=== PATIENT | male | born 1960 | race Caucasian/White ===

== ENCOUNTER 2024-03-09 07:39 | Emergency (ER) | payer OTHER ==
--- NOTE | 2024-03-09 08:39 | RAD REPORT ---
EXAM DESCRIPTION: RAD - Chest Single View - 03/09/2024 8:29 am CLINICAL HISTORY: ABDOMINAL DISTENTION COMPARISON: No comparisons FINDINGS: Lines: None. Lungs: No evidence of edema or pneumonia. Pleural: No significant pleural effusions or pneumothorax. Cardiac: The heart size is within normal limits. Mediastinum: Within normal limits. Bones: No acute fractures. Other: None IMPRESSION: No acute cardiopulmonary disease.
[2024-03-09] MEDS ORDERED: NA CHLORIDE 0.9% 1,000 ML ONE (09:08)
[2024-03-09 09:20] LABS: Absolute Basophils 0.1 K/uL (0-0.5); Absolute Eosinophils 0.5 K/uL (0-0.5); Absolute Lymphocytes (CBC) 1.7 K/uL (0.7-4.9); Absolute Monocytes 1.6 K/uL (0.1-1.3); Absolute Neutrophil 15.1 K/uL (1.8-8.0); Basophils % 0.3 % (0-1.3); Eosinophils % 2.5 % (0-4.4); Hematocrit 50.1 % (39.6-49.0); Hemoglobin 16.5 g/dL (13.6-17.9); Lymphocytes % 8.9 % (15.3-44.8); MCH 28.6 pg (27.0-35.0); MCV 86.6 fL (80-100); MPV 7.8 fL (7.6-11.3); Monocytes % 8.5 % (3.3-12.3); Neutrophils % 79.8 % (41.7-73.7); Nucleated Red Blood Cells % 0.1 % (0-0); PT Prothrombin Time 11.4 SECONDS (9.4-12.5); Platelets 274 thou/uL (152-406); Protime INR 1.02; RBC Red Blood Cell Count 5.79 M/uL (4.33-5.43); Red Cell Distribution Width 15.3 % (12.1-15.2)
[2024-03-09 09:22] LABS: Specific Gravity 1.024 (1.005-1.030); Sqamous Epithelial <5 /HPF (None Seen); Urine Bacteria 20-50 /HPF (<20); Urine Bilirubin NEGATIVE (Negative); Urine Blood 2+ (Negative); Urine Clarity Extremely Turbid (Clear); Urine Color Yellow (Yellow); Urine Culture Reflex Order REFLEXED; Urine Glucose NEGATIVE (Negative); Urine Ketones NEGATIVE (Negative); Urine Microscopic Reflex YN ORDER UMIC; Urine Mucus 2+ /HPF (None Seen); Urine Nitrite 2+ (Negative); Urine Protein 1+ (Negative); Urine RBC >50 /HPF (None Seen); Urine Urobilinogen Normal (Normal); Urine WBC >50 /HPF (<5)
[2024-03-09 09:39] LABS: Albumin 4.1 g/dL (3.4-5.0); Albumin/Globulin Ratio 1.1 (1.1-1.8); Bilirubin Direct 0.2 mg/dL (0-0.2); Bilirubin Indirect, Calculated 0.9 mg/dL (0.2-0.8); Bilirubin Total 1.1 mg/dL (0.2-1.0); Globulin 3.8 g/dL (2.3-3.5); Protein, Total 7.9 g/dL (6.4-8.2); Troponin High Sensitivity 15.7 pg/mL (<58.9)
--- NOTE | 2024-03-09 10:19 | RAD REPORT ---
EXAM DESCRIPTION: CTAbdomen Pelvis W Contrast - 03/09/2024 10:06 am CLINICAL HISTORY: ABD PAIN COMPARISON: No comparisons TECHNIQUE: CT of the abdomen and pelvis was performed with IV contrast. All CT scans are performed using dose optimization technique as appropriate and may include automated exposure control or mA/KV adjustment according to patient size. FINDINGS: Lower chest: No acute abnormality. Circumferential thickened distal esophagus. Liver: No acute abnormality or suspicious lesions. Biliary: No biliary ductal dilatation. Stomach: No significant focal abnormality. Duodenum: No significant focal abnormality. Pancreas: No significant abnormality. Spleen: No significant abnormality. Adrenal: No suspicious lesions. Kidney/ureter: No hydronephrosis. No renal calculi. Wedge-shaped area of hypoenhancement in the inter polar aspect of the right kidney Retroperitoneum: No retroperitoneal adenopathy. Vascular: No aneurysm. Atherosclerosis . Bowel: Normal appendix. No bowel obstruction.. Diverticulosis without diverticulitis. Peritoneum: No ascites or free air. Bladder: Grossly unremarkable. Reproductive: Bilateral hydroceles are partially imaged. Bones: No acute fracture. Multilevel degenerative changes are present in the spine. Other: n/a IMPRESSION: Wedge-shaped area of hypoenhancement in the right kidney could represent changes of armand y pyelonephritis, less likely renal infarct. Correlate with urinalysis. No urinary tract calculi . No hydronephrosis. Normal appendix.
[2024-03-09] MEDS ORDERED: Meropenem 1000 MG/VIAL IV ONE (10:23)
[2024-03-09] MEDS ORDERED: ONDANSETRON 4 MG/2 ML VIAL ONE (10:23)
[2024-03-09] MEDS ORDERED: MORPHINE 4 MG/ML SYR ONE (10:24)
[2024-03-09] MEDS ORDERED: NA CHLORIDE 0.9% 100 ML ONE (10:24)
--- NOTE | 2024-03-09 11:24 | ER ---
Nurse's Notes [facility] Name: Mahendra Goodwin Age: 63 yrs Sex: Male : 1960 Arrival Date: 03/09/2024 Time: 07:39 Bed 16 Private MD: Diagnosis: Elevated white blood cell count;Pyelonephritis acute;UTI/ Urinary tract infection, site not specified Presentation: 03/09 08:22 Chief complaint: Intermittent RLQ pain x 1 month, subjective fever last night. hb Coronavirus screen: At this time, the client does not indicate any symptoms associated with coronavirus-19. Ebola Screen: No symptoms or risks identified at this time. Initial Sepsis Screen: Does the patient meet any 2 criteria? No. Patient's initial sepsis screen is negative. Does the patient have a suspected source of infection? No. Patient's initial sepsis screen is negative. Risk Assessment: Do you want to hurt yourself or someone else? Patient reports no desire to harm self or others. Onset of symptoms was January 2024. 08:22 Method Of Arrival: Ambulatory hb 08:22 Acuity: VIDA 3 hb Historical: - Allergies: 08:23 No Known Allergies; hb - Home Meds: 08:23 None [Active]; hb - PMHx: 08:23 TBI; hb - PSHx: 08:23 Danica- Right; hb - Immunization history:: Adult Immunizations up to date. - Infectious Disease History:: Denies. - Social history:: Smoking status: Patient reports the use of cigarette tobacco products, cigars. Screenin:15 [facility] ED Fall Risk Assessment (Adult) History of falling in the last 3 months, db including since admission No falls in past 3 months (0 pts) Confusion or Disorientation No (0 pts) Intoxicated or Sedated No (0 pts) Impaired Gait No (0 pts) Mobility Assist Device Used No (0 pt) Altered Elimination No (0 pt) Score/Fall Risk Level 0 - 2 = Low Risk Oriented to surroundings, Maintained a safe environment. Abuse screen: Denies threats or abuse. Denies injuries from another. Nutritional screening: No deficits noted. Tuberculosis screening: No symptoms or risk factors identified. Assessment: 09:16 Reassessment: Patient appears in no apparent distress at this time. Patient and/or db family updated on plan of care and expected duration. Pain level reassessed. Patient is alert, oriented x 3, equal unlabored respirations, skin warm/dry/pink. LEFT LOWER ABD PAIN. General: Appears in no apparent distress. comfortable, Behavior is calm, cooperative. Pain: Complains of pain in abdomen. Neuro: Level of Consciousness is awake, alert, obeys commands, Oriented to person, place, time, situation. Respiratory: Airway is patent Respiratory effort is even, unlabored, Respiratory pattern is regular, symmetrical. GI: Abdomen is flat, Bowel sounds Abd is soft Abdomen is tender to palpation in left lower quadrant. 10:40 Reassessment: Patient appears in no apparent distress at this time. Patient and/or kj2 family updated on plan of care and expected duration. Pain level reassessed. Patient is alert, oriented x 3, equal unlabored respirations, skin warm/dry/pink. Vital Signs: 08:22 BP 134 / 83; Pulse 82; Resp 16; Temp 98.3(O); Pulse Ox 100% on R/A; Weight 89.36 kg; hb Height 5 ft. 8 in. ; Pain 6/10; 12:26 BP 165 / 88; Pulse 75; Resp 20; Temp 98; Pulse Ox 100% on R/A; kj2 08:22 Body Mass Index 29.95 (89.36 kg, 172.72 cm) hb 08:22 Pain Scale: Adult hb ED Course: 07:46 Patient arrived in ED. mg5 07:53 Jarad Santiago MD is Attending Physician. annelise 08:23 Triage completed. hb 08:24 Arm band placed on. hb 08:31 XRAY Chest (1 view) In Process Unspecified. EDMS 09:10 Initial lab(s) drawn, by hi, sent to lab. Inserted saline lock: 20 gauge in left db antecubital area, using aseptic technique. Blood collected. Flushed with 10 mL NS. 09:18 Patient has correct armband on for positive identification. Bed in low position. Call db light in reach. Side rails up X 1. Pulse ox on. NIBP on. Warm blanket given. 09:58 Gloria Antony, RN is Primary Nurse. db 10:08 CT Abd/Pelvis - IV Contrast Only In Process Unspecified. EDMS 10:14 Patient moved back from CT. db 11:22 Kaushal Novoa MD is Hospitalizing Provider. annelise 11:53 US Rp Exam Limited In Process Unspecified. EDMS 11:55 US Scrotum Testicles In Process Unspecified. EDMS 12:08 Wili Sanders MD is Referral Physician. [facility] 12:30 Provided Education on: CALL LIGHT, FALL PRECAUTIONS. kj2 12:31 IV discontinued, intact, bleeding controlled, No redness/swelling at site. Pressure kj2 dressing applied. 12:31 No provider procedures requiring assistance completed. kj2 Administered Medications: 09:12 Drug: NS 0.9% IV 1000 ml IV at 1 bolus Per protocol; 1000 mL bolus Route: IV; Rate: 1 db bolus; Site: left antecubital; 10:15 Follow up: IV Status: Completed infusion; IV Intake: 1000ml kj2 10:42 Follow up: IV Status: Completed infusion; IV Intake: 1000ml kj2 10:35 Drug: morphine IVP or IV 4 mg IVP once over 4 mins Route: IVP; Infused Over: 4 mins; kj2 Site: left wrist; 11:15 Follow up: Response: No adverse reaction; Pain is decreased kj2 10:40 Drug: Ondansetron IVP 4 mg IVP once; over 2 minutes Route: IVP; Site: left wrist; kj2 12:28 Follow up: Response: No adverse reaction; Nausea is decreased kj2 10:41 Drug: Meropenem IV 1 grams IV at per protocol once; (mix in NS 100 mL) Route: IV; Rate: kj2 per protocol; Site: left wrist; 11:42 Follow up: IV Status: Completed infusion; IV Intake: 100ml kj2 Medication: 12:29 VIS not applicable for this client. kj2 Intake: 10:15 IV: 1000ml; Total: 1000ml. kj2 10:42 IV: 1000ml; Total: 2000ml. kj2 11:42 IV: 100ml; Total: 2100ml. kj2 Outcome: 11:23 Decision to Hospitalize by Provider. [facility] 12:08 Discharge ordered by . annelise 12:30 Discharged to home ambulatory, with family, kj2 12:30 Condition: stable 12:30 Discharge instructions given to patient, family, Instructed on discharge instructions, follow up and referral plans. Demonstrated understanding of instructions, follow-up care, medications, Prescriptions given X 2, 12:31 Patient left the ED. kj2 Signatures: Dispatcher [employer] Jarad Gan MD MD cha Baxter, Heather, RN RN hb Gloria Antony, RN RN Nita Diaz 5 Tammy Paige RN RN kj2
--- NOTE | 2024-03-09 11:24 | EDPHYS ---
Physician Documentation [facility] Name: Mahendra Goodwin Age: 63 yrs Sex: Male : 1960 Arrival Date: 03/09/2024 Time: 07:39 Bed 16 Private MD: ED Physician Jarad Santiago HPI: 03/09 11:15 This 63 yrs old Male presents to ER via Ambulatory with complaints of annelise Abdominal Pain, Vomiting. 11:15 The patient presents to the emergency department with nausea, vomiting, abdominal pain, annelise of the right lower quadrant. Onset: The symptoms/episode began/occurred 4 week(s) ago. Possible causes: unknown. The symptoms are aggravated by nothing. The symptoms are alleviated by nothing. Associated signs and symptoms: Pertinent positives: abdominal pain, nausea, vomiting. Severity of symptoms: At their worst the symptoms were moderate in the emergency department the symptoms are unchanged. The patient has not experienced similar symptoms in the past. Historical: - Allergies: 08:23 No Known Allergies; hb - Home Meds: 08:23 None [Active]; hb - PMHx: 08:23 TBI; hb - PSHx: 08:23 Dainca- Right; hb - Immunization history:: Adult Immunizations up to date. - Infectious Disease History:: Denies. - Social history:: Smoking status: Patient reports the use of cigarette tobacco products, cigars. ROS: 11:16 Constitutional: Negative for fever, chills, and weight loss, Eyes: Negative for injury, annelise pain, redness, and discharge, ENT: Negative for injury, pain, and discharge, Neck: Negative for injury, pain, and swelling, Cardiovascular: Negative for chest pain, palpitations, and edema, Respiratory: Negative for shortness of breath, cough, wheezing, and pleuritic chest pain, Back: Negative for injury and pain, MS/Extremity: Negative for injury and deformity, Skin: Negative for injury, rash, and discoloration, Neuro: Negative for headache, weakness, numbness, tingling, and seizure, Psych: Negative for depression, anxiety, suicide ideation, homicidal ideation, and hallucinations, Allergy/Immunology: Negative for hives, rash, and allergies, Endocrine: Negative for neck swelling, polydipsia, polyuria, polyphagia, and marked weight changes, Hematologic/Lymphatic: Negative for swollen nodes, abnormal bleeding, and unusual bruising, 11:16 Abdomen/GI: Positive for abdominal pain, nausea and vomiting, of the right lower quadrant, Exam: 11:16 Constitutional: This is a well developed, well nourished patient who is awake, alert, annelise and in no acute distress. Head/Face: Normocephalic, atraumatic. Eyes: Pupils equal round and reactive to light, extra-ocular motions intact. Lids and lashes normal. Conjunctiva and sclera are non-icteric and not injected. Cornea within normal limits. Periorbital areas with no swelling, redness, or edema. ENT: Nares patent. No nasal discharge, no septal abnormalities noted. Tympanic membranes are normal and external auditory canals are clear. Oropharynx with no redness, swelling, or masses, exudates, or evidence of obstruction, uvula midline. Mucous membranes moist. Neck: Trachea midline, no thyromegaly or masses palpated, and no cervical lymphadenopathy. Supple, full range of motion without nuchal rigidity, or vertebral point tenderness. No Meningismus. Chest/axilla: Normal chest wall appearance and motion. Nontender with no deformity. No lesions are appreciated. Cardiovascular: Regular rate and rhythm with a normal S1 and S2. No gallops, murmurs, or rubs. Normal PMI, no JVD. No pulse deficits. Respiratory: Lungs have equal breath sounds bilaterally, clear to auscultation and percussion. No rales, rhonchi or wheezes noted. No increased work of breathing, no retractions or nasal flaring. Back: No spinal tenderness. No costovertebral tenderness. Full range of motion. Male : Normal genitalia with no discharge or lesions. Skin: Warm, dry with normal turgor. Normal color with no rashes, no lesions, and no evidence of cellulitis. MS/ Extremity: Pulses equal, no cyanosis. Neurovascular intact. Full, normal range of motion. Neuro: Awake and alert, GCS 15, oriented to person, place, time, and situation. Cranial nerves II-XII grossly intact. Motor strength 5/5 in all extremities. Sensory grossly intact. Cerebellar exam normal. Normal gait. Psych: Awake, alert, with orientation to person, place and time. Behavior, mood, and affect are within normal limits. 11:16 Abdomen/GI: Inspection: abdomen appears normal, Bowel sounds: normal, Palpation: moderate abdominal tenderness, in the right lower quadrant, Liver: no appreciated palpable abnormalities, Hernia: not appreciated, 11:25 ECG was reviewed by the Attending Physician. [facility] Vital Signs: 08:22 BP 134 / 83; Pulse 82; Resp 16; Temp 98.3(O); Pulse Ox 100% on R/A; Weight 89.36 kg; hb Height 5 ft. 8 in. ; Pain 6/10; 12:26 BP 165 / 88; Pulse 75; Resp 20; Temp 98; Pulse Ox 100% on R/A; kj2 08:22 Body Mass Index 29.95 (89.36 kg, 172.72 cm) hb 08:22 Pain Scale: Adult hb MDM: 07:53 Patient medically screened. [facility] 11:18 Differential diagnosis: Nonspecific abd pain, appendicitis, viral gastroenteritis, annelise gastroenteritis, appendicitis, Cholelithiasis, diverticulitis, non-specific abd pain, pancreatitis, Peptic Ulcer Disease, Peritonitis, Prostatitis, Ureterolithiasis, urinary tract infection. Data reviewed: vital signs, nurses notes, lab test result(s), EKG, radiologic studies, CT scan, plain films. Consideration of Admission/Observation Escalation of care including admission/observation considered. I considered the following discharge prescriptions or medication management in the emergency department Medications were administered in the Emergency Department. See MAR. Independent interpretation of the following test(s) in the Emergency Department EKG: See my EKG interpretation above. Test considered but Not performed: MRI: no mri renal. Care significantly affected by the following chronic conditions: tbi. 03/09 07:54 Order name: Basic Metabolic Panel; Complete Time: 09:45 [facility] 03/09 07:54 Order name: CBC with Diff; Complete Time: 09:45 [facility] 03/09 07:54 Order name: LFT's; Complete Time: 09:45 [facility] 03/09 07:54 Order name: Magnesium; Complete Time: 09:45 [facility] 03/09 07:54 Order name: NT PRO-BNP; Complete Time: 09:45 [facility] 03/09 07:54 Order name: PT-INR; Complete Time: 09:45 [facility] 03/09 07:54 Order name: Troponin HS; Complete Time: 09:45 [facility] 03/09 07:54 Order name: Lipase; Complete Time: 09:45 [facility] 03/09 07:54 Order name: Urinalysis w/ reflexes; Complete Time: 09:45 [facility] 03/09 09:30 Order name: Urine Culture [facility] 03/09 07:54 Order name: XRAY Chest (1 view); Complete Time: 09:45 [facility] 03/09 07:54 Order name: CT Abd/Pelvis - IV Contrast Only; Complete Time: 11:03 [facility] 03/09 11:25 Order name: US Rp Exam Limited [facility] 03/09 11:25 Order name: US Scrotum Testicles [facility] 03/09 07:54 Order name: Cardiac monitoring; Complete Time: 10:43 [facility] 03/09 07:54 Order name: EKG - Nurse/Tech; Complete Time: 10:43 [facility] 03/09 07:54 Order name: IV Saline Lock; Complete Time: 09:16 [facility] 03/09 07:54 Order name: Labs collected and sent; Complete Time: 09:16 [facility] 03/09 07:54 Order name: O2 Per Protocol; Complete Time: 09:16 [facility] 03/09 07:54 Order name: O2 Sat Monitoring; Complete Time: 09:16 [facility] EC:25 Rate is 73 beats/min. Rhythm is regular. QRS Taft is Normal. [place] interval is normal. QRS annelise interval is normal. QT interval is normal. No Q waves. T waves are Normal. No ST changes noted. Clinical impression: NSR w/ Non-specific ST/T Changes and No evidence of ischemia. Interpreted by me. Reviewed by me. Administered Medications: 09:12 Drug: NS 0.9% IV 1000 ml IV at 1 bolus Per protocol; 1000 mL bolus Route: IV; Rate: 1 db bolus; Site: left antecubital; 10:15 Follow up: IV Status: Completed infusion; IV Intake: 1000ml kj2 10:42 Follow up: IV Status: Completed infusion; IV Intake: 1000ml kj2 10:35 Drug: morphine IVP or IV 4 mg IVP once over 4 mins Route: IVP; Infused Over: 4 mins; kj2 Site: left wrist; 11:15 Follow up: Response: No adverse reaction; Pain is decreased kj2 10:40 Drug: Ondansetron IVP 4 mg IVP once; over 2 minutes Route: IVP; Site: left wrist; kj2 12:28 Follow up: Response: No adverse reaction; Nausea is decreased kj2 10:41 Drug: Meropenem IV 1 grams IV at per protocol once; (mix in NS 100 mL) Route: IV; Rate: kj2 per protocol; Site: left wrist; 11:42 Follow up: IV Status: Completed infusion; IV Intake: 100ml kj2 Disposition Summary: 03/09/24 12:08 Discharge Ordered Notes: Location: Home(03/09/24 12:08) annelise Problem: new(03/09/24 12:08) annelise Symptoms: have worsened(03/09/24 12:08) annelise Condition: Serious(03/09/24 12:08) annelise Diagnosis - Elevated white blood cell count(03/09/24 12:08) annelise - Pyelonephritis acute(03/09/24 12:08) annelise - UTI/ Urinary tract infection, site not specified(03/09/24 12:08) annelise Followup: annelise - With: Private Physician - When: Upon discharge from the Emergency Department - Reason: Recheck today's complaints, Continuance of care, Re-evaluation by your physician Followup: annelise - With: Wili Sanders MD - When: Upon discharge from the Emergency Department - Reason: Recheck today's complaints, Continuance of care, Re-evaluation by your physician Discharge Instructions: - Discharge Summary Sheet annelise - Dysuria annelise - Pyelonephritis, Adult annelise - Pyelonephritis, Adult, [id number] annelise - Urinary Tract Infection, Adult [facility] Forms: - Medication Reconciliation Form annelise - Antibiotic Education annelise - Prescription Opioid Use annelise - Patient Portal Instructions annelise - Leadership Thank You Letter [facility] Prescriptions: - cefdinir 300 mg Oral capsule - take 1 capsule ORAL route every 12 hours; 14 capsule; Refills: 0, Product annelise Selection Permitted - levofloxacin 500 mg Oral tablet - take 1 tablet ORAL route once daily for 10 days; 10 tablet; Refills: 0, Product annelise Selection Permitted Signatures: Dispatcher [employer] Jarad Gan MD MD cha Baxter, Heather, RN RN Gloria Betts RN RN Tammy Reed RN RN kj2 Corrections: (The following items were deleted from the chart) 07:55 07:54 BASIC METABOLIC PANEL+C.LAB.BRZ ordered. EDMS EDMS 07:55 07:54 CBC+H.LAB.BRZ ordered. EDMS EDMS 07:55 07:54 HEPATIC FUNCTION+C.LAB.BRZ ordered. EDMS EDMS 07:55 07:54 MAGNESIUM+C.LAB.BRZ ordered. EDMS EDMS 07:55 07:54 PROBNP+C.LAB.BRZ ordered. EDMS EDMS 07:55 07:54 PROTIME (+INR)+COAG.LAB.BRZ ordered. EDMS EDMS 07:55 07:54 Troponin High Sensitivity+C.LAB.BRZ ordered. EDMS EDMS 07:55 07:54 LIPASE+C.LAB.BRZ ordered. EDMS EDMS 07:55 07:54 Urinalysis+U.LAB.BRZ ordered. EDMS EDMS 07:55 07:55 Chest Single View+RAD.RAD.BRZ ordered. EDMS EDMS 07:55 07:55 Abdomen Pelvis W Con+CT.RAD.BRZ ordered. EDMS EDMS 11:25 11:25 Scrotum Testicles+US.RAD.BRZ ordered. EDMS EDMS 12:07 11:23 Inpatient Admission annelise annelise 12:07 11:23 Kaushal Novoa annelise annelise 12:07 11:23 Telemetry/MedSurg (Inpatient) annelise annelise 12:07 11:23 Fair annelise annelise 12:07 11:23 new annelise annelise 12:07 11:23 have improved annelise annelise 12:07 11:23 Standard annelise annelise 12:07 11:23 annelise annelise 12:07 11:23 Pyelonephritis acute annelise annelise 12:07 11:23 Elevated white blood cell count annelise annelise 12:07 11:23 UTI/ Urinary tract infection, site not specified annelise annelise
--- NOTE | 2024-03-09 12:05 | RAD REPORT ---
EXAM DESCRIPTION: US - Scrotum Testicles - 03/09/2024 11:53 am CLINICAL HISTORY: SWELLING COMPARISON: Abdomen Pelvis W Contrast dated 03/09/2024 FINDINGS: The right testicle 4.1 x 2.6 x 2.6 cm with volume of 14.2 cc. No intratesticular masses or evidence of testicular torsion. The left testicle 4.5 x 2.5 x 2.5 cm with volume of 15.1 cc. No intratesticular masses or evidence of testicular torsion. Subcentimeter epididymal cysts are present on the right side. The left epididymis is not well-visuali zed . Moderate bilateral hydroceles containing some low-level debris. . IMPRESSION: Moderate bilateral hydroceles with low level internal echoes possibly indicating some de bris. Bilateral testicular blood flow.
--- NOTE | 2024-03-09 12:12 | RAD REPORT ---
EXAM DESCRIPTION: US - Renal Ultrasound-Limited - 03/09/2024 11:51 am CLINICAL HISTORY: PAIN COMPARISON: Abdomen Pelvis W Contrast dated 03/09/2024 FINDINGS: The right kidney measures 10.9 cm. No hydronephrosis, focal mass or perinephric fluid. No correlate to the finding on the CT from earlier in the day. The left kidney was not imaged. IMPRESSION: Limited ultrasound to evaluate the right kidney. No sonographic correlate to the same-da y CT finding. No hydronephrosis .
[2024-03-09 12:54] VITALS: O2SAT 100
[2024-03-09 12:55] VITALS: BP 165/88; TEMP 98
--- NOTE | 2024-03-11 17:52 | EKG ---
Test Date: 2024-03-09 Test Time: 11:21:32 Supplier Relationship Director: MOHSEN MEASUREMENT RESULTS: Intervals: Rate: 73 VT: 148 QRSD: 124 QT: 414 QTc: 456 [place]: P: 52 VT: 148 QRS: 52 T: 27 INTERPRETIVE STATEMENTS: Normal sinus rhythm Right bundle branch block Abnormal ECG No previous ECG available for comparison Electronically Signed On 03-11-24 17:47:48 CDT by Claude Mary
== END 2024-03-09 12:31 | disposition home or self-care (01) ==
LOC: ER 07:39
DX: N10 Acute pyelonephritis (principal); N39.0 Urinary tract infection, site not specified; D72.829 Elevated white blood cell count, unspecified; Z72.0 Tobacco use
CPT/HCPCS: 96365; 96361; 87088; 85025; 81001; 87086; 80048; 36415; 83735; 85610; 80076; 84484; 83690; 83880; 74177; 71045; 76870; 76775; 96375; 99285; Q9967; J2185; J2405; J7030; 93005

== ENCOUNTER 2024-03-10 08:56 | Observation (INO) | payer OTHER ==
[2024-03-10] MEDS ORDERED: KETOROLAC 30 MG/ML INJ ONE (09:41)
[2024-03-10 09:45] LABS: Absolute Basophils 0.1 K/uL (0-0.5); Absolute Eosinophils 0.1 K/uL (0-0.5); Absolute Lymphocytes (CBC) 2.2 K/uL (0.7-4.9); Absolute Monocytes 1.8 K/uL (0.1-1.3); Absolute Neutrophil 13.1 K/uL (1.8-8.0); Basophils % 0.3 % (0-1.3); Eosinophils % 0.8 % (0-4.4); Hematocrit 45.7 % (39.6-49.0); Hemoglobin 15.3 g/dL (13.6-17.9); Lymphocytes % 12.5 % (15.3-44.8); MCHC 33.5 g/dL (32.0-36.0); MCV 86.6 fL (80-100); MPV 7.6 fL (7.6-11.3); Monocytes % 10.6 % (3.3-12.3); Neutrophils % 75.8 % (41.7-73.7); Nucleated Red Blood Cells % 0.1 % (0-0); Platelets 230 thou/uL (152-406); RBC Red Blood Cell Count 5.28 M/uL (4.33-5.43); Red Cell Distribution Width 15.8 % (12.1-15.2)
[2024-03-10 10:01] LABS: Albumin 3.4 g/dL (3.4-5.0); Albumin/Globulin Ratio 0.9 (1.1-1.8); Anion Gap 6.9 mEq/L (5.0-15.0); Bilirubin Total 1.1 mg/dL (0.2-1.0); Globulin 3.6 g/dL (2.3-3.5); Potassium 3.9 mEq/L (3.5-5.1)
[2024-03-10] MEDS ORDERED: NA CHLORIDE 0.9% 1,000 ML ONE (10:19)
[2024-03-10 10:39] LABS: Specific Gravity > 1.030 (1.005-1.030); Sqamous Epithelial <5 /HPF (None Seen); Urine Bacteria <20 /HPF (<20); Urine Bilirubin NEGATIVE (Negative); Urine Blood 3+ (Negative); Urine Clarity Extremely Turbid (Clear); Urine Color Yellow (Yellow); Urine Culture Reflex Order REFLEXED; Urine Glucose NEGATIVE (Negative); Urine Ketones NEGATIVE (Negative); Urine Micro Reflex YN NO BILL MICROSCOPIC; Urine Mucus 4+ /HPF (None Seen); Urine Nitrite NEGATIVE (Negative); Urine Protein 1+ (Negative); Urine RBC >50 /HPF (None Seen); Urine Urobilinogen 1+ (Normal); Urine WBC >50 /HPF (<5); Urine pH 5.5 (5.0-7.0)
--- NOTE | 2024-03-10 10:52 | EDPHYS ---
Physician Documentation [facility] Name: Mahendra Goodwin Age: 63 yrs Sex: Male : 1960 Arrival Date: 03/10/2024 Time: 08:56 Bed 14 Private MD: ED Physician Ti Peters HPI: 03/10 09:14 This 63 yrs old Male presents to ER via Ambulatory with complaints of Flank Pain, sb4 Urinary Problem. 09:14 RLQ pain x 1 month. was seen here yesterday, diagnosed with pyelo, admission sb4 recommended, patient refused because he had things to do. is back today now okay with being admitted. states he did fill the antibiotics and has taken them, pain is unchanged. denies any fever, chills, nausea, vomiting. Historical: - Allergies: 09:05 No Known Allergies; ll1 - PMHx: 09:05 TBI; ll1 - PSHx: 09:05 Danica- Right; ll1 - Immunization history:: Adult Immunizations up to date. - Infectious Disease History:: Denies. - Social history:: Smoking status: Patient reports the use of cigarette tobacco products, cigars. ROS: 09:14 Constitutional: Negative for fever, chills, and weight loss, sb4 09:14 Abdomen/GI: Positive for abdominal pain, 09:14 All other systems are negative, Exam: 09:14 Constitutional: This is a well developed, well nourished patient who is awake, alert, sb4 and in no acute distress. Head/Face: Normocephalic, atraumatic. Eyes: Extra-ocular motions intact. Periorbital areas with no swelling, redness, or edema. ENT: Mucous membranes moist. Cardiovascular: Regular rate and rhythm with a normal S1 and S2. Respiratory: Lungs have equal breath sounds bilaterally, clear to auscultation and percussion. No rales, rhonchi or wheezes noted. No increased work of breathing, no retractions or nasal flaring. Abdomen/GI: Soft, non-tender, no distension. Skin: Warm, dry with normal turgor. Normal color with no rashes, no lesions, and no evidence of cellulitis. MS/ Extremity: Pulses equal, no cyanosis. Neurovascular intact. Full, normal range of motion. Vital Signs: 09:05 BP 151 / 91; Pulse 79; Resp 17; Temp 97.5(O); Pulse Ox 99% on R/A; Weight 89.36 kg; ll1 Height 5 ft. 8 in. ; Pain 8/10; 11:30 BP 149 / 87; Pulse 82; Resp 17; Pulse Ox 98% on R/A; rs5 13:05 BP 135 / 81; Pulse 80; Resp 16; Pulse Ox 98% on R/A; rs5 09:05 Body Mass Index 29.95 (89.36 kg, 172.72 cm) ll1 09:05 Pain Scale: Adult ll1 MDM: 09:01 Patient medically screened. sb4 10:51 Data reviewed: vital signs, nurses notes, lab test result(s), and as a result, I will sb4 admit patient. Consideration of Admission/Observation Patient was admitted/placed on observation. Counseling: I had a detailed discussion with the patient and/or guardian regarding the historical points, exam findings, and any diagnostic results supporting the discharge/admit diagnosis, lab results, the need for further work-up and treatment in the hospital. 03/10 09:13 Order name: CBC with Diff; Complete Time: 09:50 sb4 03/10 09:13 Order name: CMP; Complete Time: 10:02 sb4 03/10 09:13 Order name: UAM; Complete Time: 10:50 sb4 03/10 09:13 Order name: IV Start; Complete Time: 09:39 sb4 Administered Medications: 09:10 Drug: Ketorolac IVP 15 mg IVP once Route: IVP; Site: right antecubital; rs5 09:33 Follow up: Response: No adverse reaction; Pain is decreased rs5 10:06 Drug: NS 0.9% IV 1000 ml IV at 1 bolus Per protocol; 1000 mL bolus Route: IV; Rate: 1 rs5 bolus; Site: right antecubital; 11:01 Follow up: IV Status: Completed infusion rs5 10:55 Drug: Rocephin IV 1 grams IV at calculated rate once; Given slow IV push per pharmacy rs5 instructions Route: IV; Rate: calculated rate; Site: right antecubital; 11:20 Follow up: Response: No adverse reaction; IV Status: Completed infusion rs5 Disposition: 11:00 I was immediately available on-site in the Emergency Department for consultation in the ms3 care of the patient. Disposition Summary: 03/10/24 10:52 Hospitalization Ordered Notes: Hospitalization Status: Inpatient Admission sb4 Provider: Malika Larkin Location: Telemetry/MedSur (Inpatient) sb4 Condition: Fair sb4 Problem: an ongoing problem sb4 Symptoms: are unchanged sb4 Bed/Room Type: Standard sb4 Room Assignment: 213(03/10/24 11:59) [facility] Diagnosis - Pyelonephritis acute sb4 Forms: - Medication Reconciliation Form sb4 - SBAR form sb4 - Leadership Thank You Letter sb4 Signatures: Dispatcher [employer] EDMS Alona Moran bd Sergio Zamora RN RN ja1 Timo Frank RN RN ll1 Ti Peters DO DO ms3 Sharona Roblero PAMarkosC PARehan sb4 Zach Bull RN RN rs5 Corrections: (The following items were deleted from the chart) 09:13 09:13 CBC+H.LAB.BRZ ordered. EDMS EDMS 09:13 09:13 COMPREHENSIVE METABOLIC PANEL+C.LAB.BRZ ordered. EDMS EDMS 09:13 09:13 Urinalysis W/Microscopic+U.LAB.BRZ ordered. EDMS EDMS 11:51 10:52 sb4 bd 11:59 11:51 410 bd ja1
--- NOTE | 2024-03-10 10:52 | ER ---
Nurse's Notes [facility] Name: Mahendra Goodwin Age: 63 yrs Sex: Male : 1960 Arrival Date: 03/10/2024 Time: 08:56 Bed 14 Private MD: Diagnosis: Pyelonephritis acute Presentation: 03/10 09:05 Chief complaint: Patient states: RLQ abdominal pain for over 1 month. Here yesterday ll1 but couldn't be admitted, had things he had to do. Coronavirus screen: Client denies travel out of the [place] in the last 14 days. At this time, the client does not indicate any symptoms associated with coronavirus-19. Ebola Screen: Patient denies travel to an Ebola-affected area in the 21 days before illness onset. Initial Sepsis Screen: Does the patient meet any 2 criteria? No. Patient's initial sepsis screen is negative. Does the patient have a suspected source of infection? No. Patient's initial sepsis screen is negative. Risk Assessment: Do you want to hurt yourself or someone else? Patient reports no desire to harm self or others. Onset of symptoms was February 04, 2024. 09:05 Method Of Arrival: Ambulatory ll1 09:05 Acuity: VIDA 3 ll1 Triage Assessment: 09:07 General: Appears in no apparent distress. Behavior is calm, cooperative, appropriate ll1 for age. Pain: Complains of pain in RLQ Pain currently is 8 out of 10 on a pain scale. Quality of pain is described as aching. GI: Reports lower abdominal pain. Historical: - Allergies: 09:05 No Known Allergies; ll1 - PMHx: 09:05 TBI; ll1 - PSHx: 09:05 Danica- Right; ll1 - Immunization history:: Adult Immunizations up to date. - Infectious Disease History:: Denies. - Social history:: Smoking status: Patient reports the use of cigarette tobacco products, cigars. Screenin:05 [facility] ED Fall Risk Assessment (Adult) History of falling in the last 3 months, rs5 including since admission No falls in past 3 months (0 pts) Confusion or Disorientation No (0 pts) Intoxicated or Sedated No (0 pts) Impaired Gait No (0 pts) Mobility Assist Device Used No (0 pt) Altered Elimination No (0 pt) Score/Fall Risk Level 0 - 2 = Low Risk Oriented to surroundings, Maintained a safe environment. Abuse screen: Denies threats or abuse. Nutritional screening: No deficits noted. Tuberculosis screening: No symptoms or risk factors identified. Assessment: 09:05 General: Appears in no apparent distress. comfortable, Behavior is calm, cooperative. rs5 Pain: Complains of pain in RLQ Pain currently is 3 out of 10 on a pain scale. Quality of pain is described as aching, Is continuous. Neuro: Level of Consciousness is awake, alert, obeys commands, Oriented to person, place, time, situation. Cardiovascular: Patient's skin is warm and dry. Respiratory: Airway is patent Respiratory effort is even, unlabored, Respiratory pattern is regular, symmetrical. GI: Abdomen is round non-distended, Abd is soft and non tender X 4 quads. : Reports urgency, urinary frequency. EENT: No signs and/or symptoms were reported regarding the EENT system. Derm: Skin is intact, Skin is pink, warm \\T\\ dry. Musculoskeletal: Range of motion: intact in all extremities. 10:02 Reassessment: Patient and/or family updated on plan of care and expected duration. Pain rs5 level reassessed. Patient is alert, oriented x 3, equal unlabored respirations, skin warm/dry/pink. 11:10 Reassessment: Patient and/or family updated on plan of care and expected duration. Pain rs5 level reassessed. Patient is alert, oriented x 3, equal unlabored respirations, skin warm/dry/pink. 12:12 Reassessment: Patient and/or family updated on plan of care and expected duration. Pain rs5 level reassessed. Patient is alert, oriented x 3, equal unlabored respirations, skin warm/dry/pink. Patient denies pain at this time. Patient states feeling better. 13:05 Reassessment: No changes from previously documented assessment. rs5 Vital Signs: 09:05 BP 151 / 91; Pulse 79; Resp 17; Temp 97.5(O); Pulse Ox 99% on R/A; Weight 89.36 kg; ll1 Height 5 ft. 8 in. ; Pain 8/10; 11:30 BP 149 / 87; Pulse 82; Resp 17; Pulse Ox 98% on R/A; rs5 13:05 BP 135 / 81; Pulse 80; Resp 16; Pulse Ox 98% on R/A; rs5 09:05 Body Mass Index 29.95 (89.36 kg, 172.72 cm) ll1 09:05 Pain Scale: Adult ll1 ED Course: 08:58 Patient arrived in ED. ra3 08:59 [facility] sb4 09:00 Ti Peters DO is Attending Physician. sb4 09:00 Arm band placed on Patient placed in an exam room, on a stretcher. ll1 09:01 Zach Bull, JUSTO is Primary Nurse. rs5 09:01 Inserted saline lock: 20 gauge in right antecubital area, using aseptic technique. rs5 09:05 Patient has correct armband on for positive identification. Placed in gown. Bed in low rs5 position. Call light in reach. Side rails up X2. 09:05 No provider procedures requiring assistance completed. rs5 09:07 Triage completed. ll1 10:52 Malika Larkin MD is Hospitalizing Provider. sb4 11:43 CM met with and his Freya at the bedside in the ED exam room. Patient ane identified by name and . Demographic sheet confirmed. Patient states he lives with his Freya in a "travel trailer" and prior to admission, he performs ADLs independently without physical limitations. No MPOA in place at this time. Patient states he does not have HH, home oxygen or medical services at this time. states his preferred discharge plan is to return home upon discharge. His Freya states she will transport home when he is discharged. CM team will continue to follow and coordinate care. 13:20 Patient admitted, IV remains in place. rs5 Administered Medications: 09:10 Drug: Ketorolac IVP 15 mg IVP once Route: IVP; Site: right antecubital; rs5 09:33 Follow up: Response: No adverse reaction; Pain is decreased rs5 10:06 Drug: NS 0.9% IV 1000 ml IV at 1 bolus Per protocol; 1000 mL bolus Route: IV; Rate: 1 rs5 bolus; Site: right antecubital; 11:01 Follow up: IV Status: Completed infusion rs5 10:55 Drug: Rocephin IV 1 grams IV at calculated rate once; Given slow IV push per pharmacy rs5 instructions Route: IV; Rate: calculated rate; Site: right antecubital; 11:20 Follow up: Response: No adverse reaction; IV Status: Completed infusion rs5 Medication: 11:30 VIS not applicable for this client. rs5 Outcome: 10:52 Decision to Hospitalize by Provider. sb4 13:20 Admitted to Med/surg accompanied by tech, on monitor, with chart, rs5 13:20 Condition: stable rs5 13:20 Instructed on the need for admit, Demonstrated understanding of instructions, 13:28 Patient left the ED. rs5 Signatures: Timo Frank, RN RN ll1 Sharona Roblero PA-C PARehan sb4 Zach Bull RN RN rs5 Venecia Castillo ra3 Rosibel Hernandez RN RN ane Corrections: (The following items were deleted from the chart) : 09:05 Pain: Complains of pain in right sided lank pain Pain currently is 3 out of 10 on rs5 a pain scale. Quality of pain is described as aching, Is continuous, rs5 : 09:05 : Reports burning with urination, rs5 rs5
[2024-03-10] MEDS ORDERED: CEFTRIAXONE 1000 MG/VIAL ONE (11:08)
--- NOTE | 2024-03-10 11:42 | P.HP ---
Certification for Inpatient Patient admitted to: Observation <JeremyShannan - Last Filed: 03/10/24 15:37> Patient History Date of Service: 03/10/24 Reason for admission: pyelonephritis History of Present Illness: 63 year old male with past medical history of TBI, who is disabled, presents to the emergency room with flank pain. He reports being treated for UTI yesterday. He report taking his medication. He reports symptoms started 1 month ago, reports urinary frequency. He reports symptoms are not getting better, he reports NV, moderate fatigue,symptoms worse today. He denies having this issue in the past. No reported chest pain, fever, hematuria. Plan to admit for pylonephritis, failed out patient treatment. - Past Medical/Surgical History -: TBI -: Disabled -: ankle surgery with instrumentation - Social History Smoking Status: Current every day smoker Caffeine use: Yes Place of Residence: Home <JeremyShannan - Last Filed: 03/10/24 15:37> Date of Service: 03/10/24 <Malika Larkin - Last Filed: 03/10/24 18:07> Allergies No Known Allergies Allergy (Unverified 03/10/24 15:04) Home Medications: Naproxen Sodium [Aleve] 220 mg PO PRN 03/10/24 Review of Systems PER HPI <JeremyShannan - Last Filed: 03/10/24 15:37> Physical Examination - Physical Exam General: Alert, In no apparent distress, Oriented x3, Other (answers questions appropriately) HEENT: Atraumatic, Normocephalic, Other (missing teeth) Neck: Supple Respiratory: Clear to auscultation bilaterally, Normal air movement Cardiovascular: Normal pulses, Regular rate/rhythm Capillary refill: <2 Seconds Gastrointestinal: Normal bowel sounds, Other (flank tenderness) Musculoskeletal: No swelling, No contractures Integumentary: No breakdown, No significant lesion Neurological: Normal speech, Normal strength at 5/5 x4 extr - Studies Laboratory Data (last 24 hrs) 03/10/24 03/10/24 03/10/24 10:13 09:40 09:40 WBC 17.30 H RBC 5.28 Hgb 15.3 Hct 45.7 MCV 86.6 MCH 29.0 MCHC 33.5 RDW 15.8 H Plt Count 230 MPV 7.6 Neutrophils % 75.8 H Lymphocytes % 12.5 L Monocytes % 10.6 Eosinophils % 0.8 Basophils % 0.3 Absolute Neutrophils 13.1 H Absolute Lymphocytes 2.2 Absolute Monocytes 1.8 H Absolute Eosinophils 0.1 Absolute Basophils 0.1 Sodium 135 L Potassium 3.9 Chloride 103 Carbon Dioxide 29 Anion Gap 6.9 BUN 18 Creatinine 1.14 Est GFR (CKD-EPI) 73 L Glucose 110 H Calcium 8.7 Total Bilirubin 1.1 H AST 21 ALT 31 Alkaline Phosphatase 90 Serum Total Protein 7.0 Albumin 3.4 Globulin 3.6 H Albumin/Globulin Ratio 0.9 L Urine Color Yellow Urine Clarity Extremely turbid H Urine pH 5.5 Ur Specific Hubbell > 1.030 H Glucose (UA)(Auto) Negative Urine Ketones Negative Urine Blood 3+ H Urine Nitrite Negative Urine Bilirubin Negative Urine Urobilinogen 1+ H Ur Leukocyte Esterase 500 H Urine RBC >50 H Urine WBC >50 H Ur Squamous Epith Cells <5 Urine Bacteria <20 Hyaline Casts 0-5 Urine Mucus 4+ H Urine Culture Reflexed Reflexed Urine Total Protein 1+ H <Shannan Luna - Last Filed: 03/10/24 15:37> - Studies Laboratory Data (last 24 hrs) 03/10/24 03/10/24 09:40 09:40 WBC 17.30 H Hgb 15.3 Hct 45.7 Plt Count 230 Sodium 135 L Potassium 3.9 BUN 18 Creatinine 1.14 Glucose 110 H Total Bilirubin 1.1 H AST 21 ALT 31 Alkaline Phosphatase 90 <Malika Larkin - Last Filed: 03/10/24 18:07> Assessment and Plan - Plan Assessment/Plan pylonephritis hematuria faled op tx antibiotics TBI, who is disabled, IV abx, IVF, prn analgesics, antiemetics presents to the emergency room with flank pain. He reports being treated for UTI yesterday. He report taking his medication. He reports symptoms started 1 month ago, reports urinary frequency. He reports symptoms are not getting better, he reports NV, moderate fatigue,symptoms worse today. He denies having this issue in the past. No reported chest pain, fever, hematuria. Full code DVT SCD Diet cardiac Dispostion, home, independant prior Discharge Plan: Home - Advance Directives Does patient have a Living Will: No Does patient have a Durable POA for Healthcare: No - Code Status/Comfort Care Code Status: Full Code Critical Care: No Time Spent Managing Pts Care (In Minutes): 55 <Shannan Luna - Last Filed: 03/10/24 15:37> - Plan Pt seen and examined. I agree with the note by the LAMINATING MACHINE TENDER. Pt is a 63 yo male with past medical history of TBI who presents with right flank pain. Of note, pt presented the in the ER yesterday with similar complaint but he refused to be admitted because he had things to do. He was discharge with oral abx. The right flank pain started about a month and progressively worsened. On admission on 03/09/24, CT abd showed acute pyelonephritis. Todays lab shows wbc 17.3, Hgb 15.3, K 3.9, Cr 1.14.At bedside, pt is in NAD. A/P: Sepsis 2/2 Acute pyelonephritis: Will continue IVF, cefepime, and f/u urine cx. Will f/u lactate. Hx of TBI: stable. DVT ppx: SCD Code: full <Malika Larkin - Last Filed: 03/10/24 18:07>
[2024-03-10] MEDS ORDERED: ONDANSETRON 4 MG/2 ML VIAL IV PRN (11:49)
[2024-03-10] MEDS: NA CHLORIDE 0.9% 1,000 ML IV SCH ×2 (12:00→15:29)
[2024-03-10 14:05] VITALS: BMI 29.9
--- NOTE | 2024-03-10 18:30 | P.DS ---
Admission Date: 03/10/24 Discharge Date: 03/11/24 Disposition: ROUTINE DISCHARGE Discharge Condition: GOOD Reason for Admission: pyelonephritis Brief History of Present Illness: 63 year old male with past medical history of TBI, who is disabled, presents to the emergency room with flank pain. He reports being treated for UTI yesterday. He report taking his medication. He reports symptoms started 1 month ago, reports urinary frequency. He reports symptoms are not getting better, he reports NV, moderate fatigue,symptoms worse today. He denies having this issue in the past. No reported chest pain, fever, hematuria. Plan to admit for pylonephritis, failed out patient treatment. Physical Exam General: Alert, In no apparent distress, Oriented x3, Other (answers questions appropriately) HEENT: Atraumatic, Normocephalic, Other (missing teeth) Neck: Supple Respiratory: Clear to auscultation bilaterally, Normal air movement Cardiovascular: Normal pulses, Regular rate/rhythm Capillary refill: <2 Seconds Gastrointestinal: Normal bowel sounds, Other (flank tenderness) Musculoskeletal: No swelling, No contractures Integumentary: No breakdown, No significant lesion Neurological: Normal speech, Normal strength at 5/5 x4 extr Hospital Course: 63 year old male with past medical history of TBI, who is disabled, presents to the emergency room with flank pain. He reports being treated for UTI yesterday. He report taking his medication. He reports symptoms started 1 month ago, reports urinary frequency. He was treated with IV fluids, IV antibiotics, as needed analgesics, reports feeling better, he is tolerating diet, plan to discharge home, follow-up with primary care in 1 week Plan to discharge home with antibiotics, Continue home medicines as previously prescribed GOAL: Clear understanding of disease process INSTRUCTIONS: Physician Discharge Instructions: -Follow-up with PCP in 1 to 2 weeks -Please call Dr. Mccabe at [phone] if any questions regarding hospital stay -Please call nursing station at [phone] if any nursing or medication questions -Return to the emergency room if symptoms worsen Diet: ADA, low sodium Activity: Fall precautions Vital Signs/Physical Exam: Temp Pulse Resp BP Pulse Ox 98.3 F 69 16 142/67 H 98 03/10/24 16:00 03/10/24 16:00 03/10/24 16:00 03/10/24 16:00 03/10/24 16:00 Laboratory Data at Discharge: WBC 17.30 thou/uL (4.3-10.9) H 03/10/24 09:40 Hgb 15.3 g/dL (13.6-17.9) 03/10/24 09:40 Hct 45.7 % (39.6-49.0) 03/10/24 09:40 Plt Count 230 thou/uL (152-406) 03/10/24 09:40 Sodium 135 mEq/L (136-145) L 03/10/24 09:40 Potassium 3.9 mEq/L (3.5-5.1) 03/10/24 09:40 BUN 18 mg/dL (7-18) 03/10/24 09:40 Creatinine 1.14 mg/dL (0.70-1.30) 03/10/24 09:40 Glucose 110 mg/dL (74-106) H 03/10/24 09:40 Total Bilirubin 1.1 mg/dL (0.2-1.0) H 03/10/24 09:40 AST 21 U/L (15-37) 03/10/24 09:40 ALT 31 U/L (16-61) 03/10/24 09:40 Alkaline Phosphatase 90 U/L (45-117) 03/10/24 09:40 Home Medications: Naproxen Sodium [Aleve] 220 mg PO PRN 03/10/24 Physician Discharge Instructions: 63 year old male with past medical history of TBI, who is disabled, presents to the emergency room with flank pain. He reports being treated for UTI yesterday. He report taking his medication. He reports symptoms started 1 month ago, reports urinary frequency. He was treated with IV fluids, IV antibiotics, as needed analgesics, reports feeling better, he is tolerating diet, plan to discharge home, follow-up with primary care in 1 week Plan to discharge home with antibiotics,pt has filled from ED Continue home medicines as previously prescribed GOAL: Clear understanding of disease process INSTRUCTIONS: Physician Discharge Instructions: -Follow-up with PCP in 1 to 2 weeks -Please call Dr. Mccabe at [phone] if any questions regarding hospital stay -Please call nursing station at [phone] if any nursing or medication questions -Return to the emergency room if symptoms worsen Diet: ADA, low sodium Activity: Fall precautions Diet: Regular Activity: Fall precautions Followup: NONE,NONE [Primary Care Provider] - Time spent managing pt's care (in minutes): 45
[2024-03-10] MEDS: CEFEPIME 2 GM in NA CHLORIDE 0.9% 100 ML IV SCH (18:36)
[2024-03-10] MEDS: ACETAMINOPHEN 500 MG TAB PO PRN (20:05)
[2024-03-11 05:05] LABS: Absolute Basophils 0.1 K/uL (0-0.5); Absolute Eosinophils 0.5 K/uL (0-0.5); Absolute Lymphocytes (CBC) 1.7 K/uL (0.7-4.9); Absolute Monocytes 1.4 K/uL (0.1-1.3); Absolute Neutrophil 9.4 K/uL (1.8-8.0); Basophils % 0.5 % (0-1.3); Hematocrit 43.5 % (39.6-49.0); Hemoglobin 14.4 g/dL (13.6-17.9); Lymphocytes % 13.3 % (15.3-44.8); MCHC 33.2 g/dL (32.0-36.0); MCV 87.3 fL (80-100); MPV 7.9 fL (7.6-11.3); Monocytes % 10.4 % (3.3-12.3); Neutrophils % 71.8 % (41.7-73.7); Nucleated Red Blood Cells % 0.1 % (0-0); Platelets 198 thou/uL (152-406); RBC Red Blood Cell Count 4.98 M/uL (4.33-5.43); Red Cell Distribution Width 15.1 % (12.1-15.2)
[2024-03-11 05:25] LABS: Anion Gap 8.5 mEq/L (5.0-15.0); Magnesium 1.7 mg/dL (1.6-2.4); Potassium 4.5 mEq/L (3.5-5.1)
[2024-03-11 08:27] VITALS: BP 145/88; TEMP 97.8
[2024-03-11 08:33] VITALS: O2SAT 96
--- OUTSIDE RECORDS SUMMARY | 2024-03-11 13:40 | XMS REPORT | Continuity of Care Document ---
Author Name Unknown Address [address] [place] [address] [facility] Address [address] [place] [address] [address] [place] [address] Care Team Providers Care Tapper Supervisor Name Role Phone Unavailable Unavailable Unavailable Encounters Start Date/Time End Date/Time Encounter Type Admission Type Attending Clinicians Care Facility Care Department Encounter ID Source 2023-05-15 09:15:23 2023-05-15 09:15:23 Outpatient [facility] [id number] Aditya Worley
== END 2024-03-11 09:17 | disposition home or self-care (01) ==
LOC: ER 08:56 → ERHOLD 11:42 → 2ND 12:31
PROVIDERS: ADMIT Hospitalist; ATTEND Hospitalist
DX: N10 Acute pyelonephritis (principal); N39.0 Urinary tract infection, site not specified; F17.210 Nicotine dependence, cigarettes, uncomplicated
CPT/HCPCS: 96365; 96361; 85025 ×2; 81001; 80048; 36415; 83735; 80053; 96375; 99285; J0692; J7030 ×2; J0696; G0378